=== PATIENT | female | born 1985 | race Caucasian/White ===

== ENCOUNTER 2023-01-18 17:36 | Emergency (ER) | payer MEDICAID, OTHER ==
[2023-01-18 17:41] VITALS: PULSE 98; RESP 14
== END 2023-01-18 18:29 | disposition left against medical advice (07) ==
LOC: ER 17:36
DX: Z53.21 Procedure and treatment not carried out due to patient leaving prior to being seen by health care provider (principal)
CPT/HCPCS: 99281